=== PATIENT | female | born 1995 | race Caucasian/White ===

== ENCOUNTER 2017-04-28 11:00 | Emergency (ER) | payer OTHER ==
[~2017-04-28] VITALS: Ht 165.1 cm; Wt 59.5 kg
[2017-04-28 11:03] VITALS: TEMP 36.9; O2SAT 97; Ht 165.1 cm; Wt 59.5 kg
[2017-04-28] MEDS ORDERED: SERT25TA PO (11:13)
[2017-04-28] MEDS ORDERED: BCPILLS PO (11:13)
--- NOTE | 2017-04-28 11:25 | EMERGENCY ROOM VISIT NOTE ---
ED Visit Note First contact with patient: 11:13 CHIEF COMPLAINT: Frequent and painful urination for 2 days HISTORY OF PRESENT ILLNESS: This 21 year old woman has had increased frequency of urination, burning pain with urination, and a feeling of incomplete voiding for 2 days. She passes very small volumes of urine with each episode of voiding. She denies back pain, fever, or vaginal discharge. The patient admits to history of UTIs in the past. She has not taken anything over-the- counter for her UTI. REVIEW OF SYSTEMS: 6 system review was performed and was negative unless stated otherwise in history of present illness. PMH: The patient is healthy; IBS, wisdom teeth removal SOCIAL HISTORY: Patient lives is a student at [employer]. The patient denies any tobacco or alcohol use. PHYSICAL EXAM: Vital Signs: Were reviewed Reviewed Nurse's notes. GEN.: 21-year -old white female appears in no acute distress. MENTAL Status: Alert and oriented 3. NECK: Supple, shotty nodes noted bilaterally anterior chains. Lungs: Clear to auscultation without wheezes rales or rhonchi. CARDIAC: Regular rate and rhythm without murmur. BACK: No CVA tenderness noted. ABDOMEN : The abdomen is soft, mildly tender in the suprapubic area, but no masses or organs are felt. EMERGENCY DEPARTMENT COURSE: The patient was evaluated. Urine dip revealed 250 blood, positive nitrates positive leukocytes. Urine will be sent for urinalysis and culture. DIAGNOSIS: UTI - Cystitis DISCHARGE INSTRUCTIONS & TREATMENT: Push fluids. Tylenol as needed for pain. Take Pyridium as prescribed. This will make her urine orange. Take Macrobid as prescribed. If symptoms are not improving in 2 days, follow-up with your family doctor for reevaluation. You may call here in 36 hours for urine culture results. Current/Historical Medications Scheduled Control Pills ( Control Pills), 1 TAB PO DAILY Sertraline (Zoloft), 25 MG PO DAILY Allergies Coded Allergies: No Known Allergies (Unverified , 04/28/17) Vital Signs Date Time Temp Pulse Resp B/P (MAP) Pulse Ox O2 Delivery O2 Flow Rate FiO2 04/28/17 11:03 36.9 88 20 120/74 97 Room Air Laboratory Results Test 04/28/17 11:14 Departure Information Referrals No Doctor, Assigned (PCP) Patient Instructions My [facility]
[2017-04-28] MEDS ORDERED: NITR-5 PO (11:27)
[2017-04-28] MEDS ORDERED: PHEN-876 PO (11:27)
[2017-04-28 11:42] LABS: URINE APPEARANCE CLOUDY (CLEAR); URINE COLOR DK YELLOW; URINE EPITHELIAL CELL AUTO >30 /lpf (0-5); URINE NITRITE NEG (NEG); URINE SPECIFIC GRAVITY 1.028 (1.000-1.030); UROBILINOGEN NEG (NEG); ZZUR CULT IF INDIC CLEAN CATCH YES
[2017-04-28 11:49] LABS: MANUAL MICROSCOPIC REQUIRED? NO; REVIEW REQ? NO; URINE BILIRUBIN NEG (NEG)
[2017-04-28 11:50] VITALS: BP 112/70; PULSE 78
== END 2017-04-28 11:51 | disposition home or self-care (01) ==
LOC: C.EDB 11:01 → C.EDD 11:51
DX: N30.90 Cystitis, unspecified without hematuria (principal); K58.9 Irritable bowel syndrome, unspecified; Z87.440 Personal history of urinary (tract) infections; Z79.3 Long term (current) use of hormonal contraceptives; Z79.899 Other long term (current) drug therapy